=== PATIENT | female | born 1995 | race Caucasian/White ===

== ENCOUNTER 2016-04-04 18:10 | Emergency (ER) | payer OTHER ==
[2016-04-04] MEDS ORDERED: KETOROLAC 60 MG/2 ML VIAL IM ONE (20:47)
== END 2016-04-04 21:43 | disposition home or self-care (01) ==
LOC: ER 18:10
DX: M94.0 Chondrocostal junction syndrome [Tietze] (principal)
CPT/HCPCS: 71020